=== PATIENT | female | born 1990 | race Caucasian/White ===

== ENCOUNTER 2018-08-26 15:26 | Emergency (ER) | payer MEDICAID ==
[2018-08-26] MEDS ORDERED: Lactated Ringers 1,000 ML IV ONE ×2 (17:18→18:07)
[2018-08-26] MEDS ORDERED: Famotidine 20 MG/2 ML SDV IVPUSH ONE (17:18)
[2018-08-26] MEDS ORDERED: Folic Acid 1 MG Tab PO ONE (17:18)
[2018-08-26] MEDS ORDERED: Sodium Chloride 0.9% 10 ML Syringe FLUSH PRN (17:19)
[2018-08-26] MEDS ORDERED: Thiamine 100 MG in Sodium Chloride 0.9% 100 ML IV ONE (17:19)
--- NOTE | 2018-08-26 17:37 | EDM.PDOCBH ---
ED HPI GENERAL MEDICAL PROBLEM - General Chief Complaint: Behavioral/Psych Stated Complaint: MENTAL HEALTH CLEARANCE Time Seen by Provider: 08/26/18 16:37 Source of Information: Reports: Patient History Limitations: Reports: No Limitations - History of Present Illness INITIAL COMMENTS - FREE TEXT/NARRATIVE: 27-year-old female presents for help with depression, anxiety and alcohol abuse. Patient reports that she's been drinking alcohol daily for the last 4 months. States that she had 1/5 of whiskey today. She reports struggling with depression and anxiety. History of bipolar depression and anxiety. She was previously on Lexapro taken off in January 2018. She reports thoughts that people would be better off without her but she hasn't no plan of suicide. No homicidal ideation. Patient reports that she vomits regularly. She denies any fevers, chills, nausea. She reports sore throat for about the last 2 weeks. She has been coughing. Reports sinus drainage. Patient reports that she hasn't been in to [facility] May. Due to problems with not having vehicles she's not been able to keep appointments with [facility]. Patient denies any chance of . Patient reports she smokes about a pack a day. Primary care provider is Yuni Varghese. - Related Data Allergies Allergy/AdvReac Type Severity Reaction Status Date / Time cats Allergy Other Uncoded 08/26/18 15:57 Home Meds: Home Meds Escitalopram [Lexapro] 10 mg PO DAILY #14 tab 08/26/18 [Rx] Naproxen. 08/26/18 [History] Past Medical History Respiratory History: Reports: Asthma Other Respiratory History: exercise induced Social & Family History - Tobacco Use Smoking Status *Q: Current Every Day Smoker Years of Tobacco use: 11 Packs/Tins Daily: 1 - Recreational Drug Use Recreational Drug Use: Yes Drug Use in Last 12 Months: Yes Recreational Drug Type: Reports: Marijuana/Hashish ED ROS GENERAL - Review of Systems Review Of Systems: See Below Constitutional: Denies: Fever, Chills HEENT: Reports: Sinus Problem (reports drainge due to allergies), Throat Pain Respiratory: Reports: Cough GI/Abdominal: Reports: Vomiting. Denies: Nausea Psychiatric: Reports: Anxiety, Depression. Denies: Homicidal Ideation, Suicidal Ideation ED EXAM, BEHAVIORAL HEALTH - Physical Exam Exam: See Below Exam Limited By: No Limitations General Appearance: Alert, WD/WN, No Apparent Distress Eye Exam: Bilateral Eye: Normal Inspection, PERRL Ears: Normal External Exam, Normal Canal, Hearing Grossly Normal, Normal TMs Nose: Normal Inspection Throat/Mouth: Normal Inspection, Normal Lips, Normal Oropharynx, Normal Voice, No Airway Compromise Head: Atraumatic, Normocephalic Neck: Normal Inspection, Supple, Non-Tender Respiratory/Chest: No Respiratory Distress, Lungs Clear, Normal Breath Sounds Cardiovascular: Normal Peripheral Pulses, Regular Rate, Rhythm, No Murmur GI/Abdominal: Normal Bowel Sounds, Soft, Non-Tender Extremities: Normal Inspection Neurological: Alert, Normal Mood/Affect, Normal Cognition Psychiatric: Alert, Normal Affect, Normal Cognition, Normal Mood, Oriented. No : Homicidal Thoughts, Suicidal Plan, Suicidal Thoughts Skin Exam: Warm, Dry, Normal color COURSE, BEHAVIORAL HEALTH COMP - Course Vital Signs: Last Vital Signs Temp 98.1 F 08/26/18 15:47 Pulse 84 08/26/18 15:47 Resp 17 08/26/18 15:47 BP 128/102 H 08/26/18 15:47 Pulse Ox 98 08/26/18 15:47 Orders, Labs, Meds: Laboratory Tests 08/26/18 08/26/18 08/26/18 Range/Units 15:50 15:50 16:25 WBC 8.62 (3.98-10.04) K/mm3 RBC 4.27 (3.98-5.22) M/mm3 Hgb 14.0 (11.2-15.7) gm/L Hct 41.9 (34.1-44.9) % MCV 98.1 H (79.4-94.8) fl MCH 32.8 H (25.6-32.2) pg MCHC 33.4 (32.2-35.5) g/dl RDW Std Deviation 55.4 H (36.4-46.3) fL Plt Count 238 (182-369) K/mm3 MPV 10.4 (9.4-12.3) fl Neut % (Auto) 49.1 (34.0-71.1) % Lymph % (Auto) 38.3 (19.3-51.7) % Harnett % (Auto) 8.6 (4.7-12.5) % Eos % (Auto) 3.2 (0.7-5.8) Baso % (Auto) 0.5 (0.1-1.2) % Neut # (Auto) 4.23 (1.56-6.13) K/mm3 Lymph # (Auto) 3.30 (1.18-3.74) K/mm3 Harnett # (Auto) 0.74 H (0.24-0.36) K/mm3 Eos # (Auto) 0.28 (0.04-0.36) K/mm3 Baso # (Auto) 0.04 (0.01-0.08) K/mm3 Sodium 144 (136-145) mEq/L Potassium 3.1 L (3.5-5.1) mEq/L Chloride 108 H (98-107) mEq/L Carbon Dioxide 22 (21-32) mEq/L Anion Gap 17.1 H (5-15) BUN 6 L (7-18) mg/dL Creatinine 0.7 (0.55-1.02) mg/dL Est Cr Clr Drug Dosing 91.09 mL/min Estimated GFR (MDRD) > 60 (>60) mL/min BUN/Creatinine Ratio 8.6 L (14-18) Glucose 121 H (74-106) mg/dL Calcium 8.3 L (8.5-10.1) mg/dL Magnesium 1.8 (1.8-2.4) mg/dl Total Bilirubin 0.4 (0.2-1.0) mg/dL AST 55 H (15-37) U/L ALT 63 H (14-59) U/L Alkaline Phosphatase 87 (46-116) U/L Total Protein 7.4 (6.4-8.2) g/dl Albumin 3.6 (3.4-5.0) g/dl Globulin 3.8 gm/dL Albumin/Globulin Ratio 1.0 (1-2) TSH 3rd Generation 2.210 (0.358-3.74) uIU/mL Urine Color Light yellow (Yellow) Urine Appearance Clear (Clear) Urine pH 7.0 (5.0-8.0) Ur Specific Ada 1.010 (1.005-1.030) Urine Protein Negative (Negative) Urine Glucose (UA) Negative (Negative) Urine Ketones Negative (Negative) Urine Occult Blood Negative (Negative) Urine Nitrite Negative (Negative) Urine Bilirubin Negative (Negative) Urine Urobilinogen 0.2 (0.2-1.0) Ur Leukocyte Esterase Negative (Negative) Urine RBC 0-5 (0-5) /hpf Urine WBC 0-5 (0-5) /hpf Ur Squamous Epith Cells 0-5 (0-5) /hpf Urine Bacteria Occasional (FEW) /hpf Urine Mucus Not seen (FEW) /hpf Urine HCG, Qual (NEGATIVE) Urine Opiates Screen (IOLYSW=046) Ur Buprenorphine Scrn (CUTOFF=10) Ur Oxycodone Screen (XNW0HO=889) Urine Methadone Screen (ETGPUC=323) Ur Propoxyphene Screen (WBCUKY=080) Ur Barbiturates Screen (ZDDNJR=339) Ur Tricyclics Screen (MGHGPF=610) Ur Phencyclidine Scrn (CUTOFF=25) Ur Amphetamine Screen (VBFJFD=765) U Methamphetamines Scrn (HBMNXJ=564) U Benzodiazepines Scrn (KMNYIU=102) U Cocaine Metab Screen (EQQXAF=400) U Marijuana (THC) Screen (CUTOFF=50) Ethyl Alcohol 0.36 (0.00) gm% 08/26/18 08/26/18 Range/Units 16:25 16:25 WBC (3.98-10.04) K/mm3 RBC (3.98-5.22) M/mm3 Hgb (11.2-15.7) gm/L Hct (34.1-44.9) % MCV (79.4-94.8) fl MCH (25.6-32.2) pg MCHC (32.2-35.5) g/dl RDW Std Deviation (36.4-46.3) fL Plt Count (182-369) K/mm3 MPV (9.4-12.3) fl Neut % (Auto) (34.0-71.1) % Lymph % (Auto) (19.3-51.7) % Harnett % (Auto) (4.7-12.5) % Eos % (Auto) (0.7-5.8) Baso % (Auto) (0.1-1.2) % Neut # (Auto) (1.56-6.13) K/mm3 Lymph # (Auto) (1.18-3.74) K/mm3 Harnett # (Auto) (0.24-0.36) K/mm3 Eos # (Auto) (0.04-0.36) K/mm3 Baso # (Auto) (0.01-0.08) K/mm3 Sodium (136-145) mEq/L Potassium (3.5-5.1) mEq/L Chloride (98-107) mEq/L Carbon Dioxide (21-32) mEq/L Anion Gap (5-15) BUN (7-18) mg/dL Creatinine (0.55-1.02) mg/dL Est Cr Clr Drug Dosing mL/min Estimated GFR (MDRD) (>60) mL/min BUN/Creatinine Ratio (14-18) Glucose (74-106) mg/dL Calcium (8.5-10.1) mg/dL Magnesium (1.8-2.4) mg/dl Total Bilirubin (0.2-1.0) mg/dL AST (15-37) U/L ALT (14-59) U/L Alkaline Phosphatase (46-116) U/L Total Protein (6.4-8.2) g/dl Albumin (3.4-5.0) g/dl Globulin gm/dL Albumin/Globulin Ratio (1-2) TSH 3rd Generation (0.358-3.74) uIU/mL Urine Color (Yellow) Urine Appearance (Clear) Urine pH (5.0-8.0) Ur Specific Ada (1.005-1.030) Urine Protein (Negative) Urine Glucose (UA) (Negative) Urine Ketones (Negative) Urine Occult Blood (Negative) Urine Nitrite (Negative) Urine Bilirubin (Negative) Urine Urobilinogen (0.2-1.0) Ur Leukocyte Esterase (Negative) Urine RBC (0-5) /hpf Urine WBC (0-5) /hpf Ur Squamous Epith Cells (0-5) /hpf Urine Bacteria (FEW) /hpf Urine Mucus (FEW) /hpf Urine HCG, Qual Negative (NEGATIVE) Urine Opiates Screen Negative (DLDIIR=170) Ur Buprenorphine Scrn Negative (CUTOFF=10) Ur Oxycodone Screen Negative (CAC8SD=278) Urine Methadone Screen Negative (RBJIVC=721) Ur Propoxyphene Screen Negative (BNSNHI=823) Ur Barbiturates Screen Negative (WHLITZ=179) Ur Tricyclics Screen Negative (SETMGY=472) Ur Phencyclidine Scrn Negative (CUTOFF=25) Ur Amphetamine Screen Negative (ZORSJQ=722) U Methamphetamines Scrn Negative (UCYOTK=957) U Benzodiazepines Scrn Negative (TIQPQQ=202) U Cocaine Metab Screen Negative (RFFUAO=768) U Marijuana (THC) Screen Negative (CUTOFF=50) Ethyl Alcohol (0.00) gm% Medications Discontinued Medications Generic Name Dose Route Start Last Admin Trade Name Freq PRN Reason Stop Dose Admin Famotidine 20 mg 08/26/18 17:18 08/26/18 18:26 Pepcid IVPUSH 08/26/18 17:19 20 mg ONETIME ONE Administration Folic Acid 1 mg 08/26/18 17:18 08/26/18 18:27 Folic Acid PO 08/26/18 17:19 1 mg ONETIME ONE Administration Lactated Ringer's 1,000 mls @ 999 mls/hr 08/26/18 17:18 08/26/18 18:00 Ringers, Lactated IV 08/26/18 18:18 999 mls/hr .BOLUS ONE Administration Thiamine HCl 100 mg/ Sodium 101 mls @ 202 mls/hr 08/26/18 17:19 08/26/18 18: 02 Chloride IV 08/26/18 17:20 202 mls/hr ONETIME ONE Administration Lactated Ringer's 1,000 mls @ 999 mls/hr 08/26/18 18:07 Ringers, Lactated IV 08/26/18 19:07 .BOLUS ONE Ketorolac Tromethamine 30 mg 08/26/18 17:47 08/26/18 18:26 Toradol IVPUSH 08/26/18 17:48 30 mg ONETIME ONE Administration Potassium Chloride 40 meq 08/26/18 18:07 08/26/18 18:29 Klor-Con M20 PO 08/26/18 18:08 40 meq ONETIME ONE Administration Sodium Chloride 10 ml 08/26/18 17:19 08/26/18 18:27 Saline Flush FLUSH 10 ml ASDIRECTED PRN Administration Keep Vein Open Re-Assessment/Re-Exam: 20:00 I did call the [facility] they do not have a crisis bed available for her tonight. She has family here who she can be with. Encouraged her to continue talk to the [facility] and follow-up with brian. We will discharge her home. Discharge instructions as documented. Departure - Departure Time of Disposition: 20:02 Disposition: Home, Self-Care 01 Condition: Fair Clinical Impression: Alcohol abuse, Depressive disorder - Discharge Information *PRESCRIPTION DRUG MONITORING PROGRAM REVIEWED*: No *COPY OF PRESCRIPTION DRUG MONITORING REPORT IN PATIENT MARY: No Prescriptions: Escitalopram [Lexapro] 10 mg PO DAILY #14 tab Instructions: Alcohol Use Disorder, Major Depressive Disorder, Adult, Easy-to- Read Referrals: PCP,None [Primary Care Provider] - Lia Varghese NP [Ordering Only Provider] - Forms: ED Department Discharge, ED Return to Work/School Form Additional Instructions: make Sure you are drinking plenty of fluids. You may start the Lexapro 1 tab daily. Avoid alcohol. Follow up with your primary care provider in 2 weeks for recheck of your depression and further management of her medications. Recommend reconnecting with Brian. Call the emergency crisis line to see if the crisis bed is open later tonight or tomorrow. please return to the ER if symptoms change or worsen.
[2018-08-26] MEDS ORDERED: Ketorolac 30 MG/ML SDV IVPUSH ONE (17:47)
[2018-08-26] MEDS ORDERED: Potassium Chloride 20 MEQ Tab.ER PO ONE (18:07)
== END 2018-08-26 20:20 | disposition home or self-care (01) ==
LOC: JD.ED 15:26
DX: F32.9 Major depressive disorder, single episode, unspecified (principal); F10.10 Alcohol abuse, uncomplicated; Y90.8 Blood alcohol level of 240 mg/100 ml or more; F41.9 Anxiety disorder, unspecified; F17.210 Nicotine dependence, cigarettes, uncomplicated; Z79.899 Other long term (current) drug therapy
CPT/HCPCS: 36415; 80053; 80306; 81001; 81025; 83735; 84443; 85025; 96361; 96365; 96375; 99284; A9270; G0480; J1885; J3411; J3490; J7030; J7120; 99283

== ENCOUNTER 2019-04-10 03:31 | Emergency (ER) | payer MEDICAID ==
[2019-04-10] MEDS ORDERED: Ondansetron 4 MG/2 ML SDV IVPUSH ONE (03:46)
[2019-04-10] MEDS ORDERED: Lactated Ringers 1,000 ML IV ONE ×2 (03:46→05:01)
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
== END 2019-04-10 05:47 ==
LOC: JD.ED 03:31
DX: F10.229 Alcohol dependence with intoxication, unspecified (principal); Y90.2 Blood alcohol level of 40-59 mg/100 ml; E87.2 Acidosis; F17.210 Nicotine dependence, cigarettes, uncomplicated; E66.9 Obesity, unspecified; R73.9 Hyperglycemia, unspecified; E87.6 Hypokalemia; E87.8 Other disorders of electrolyte and fluid balance, not elsewhere classified; Z91.048 Other nonmedicinal substance allergy status
CPT/HCPCS: 36415; 80053; 80306; 80320; 83735; 85025; 96361; 96374; 99283; J2405; J7120; G0480